=== PATIENT | female | born 1970 | race Caucasian/White ===

== ENCOUNTER 2017-07-08 17:38 | Emergency (ER) | payer OTHER ==
[2017-07-08 17:39] VITALS: BMI 47.4
[2017-07-08 18:01] VITALS: TEMP 98
--- NOTE | 2017-07-08 19:04 | C.PDOC ---
History Of Present Illness 47 year old female presents to the ED c/o Bilateral hand pain, left knee, and right hip pain. Patient reports that today she slipped at work on a waxed floor and fell forward. Patient denies LOC, headache, CP, SOB, weakness, numbness. - HPI Time Seen by Provider: 07/08/17 18:36 Chief Complaint (Nursing): Trauma History Per: Patient History/Exam Limitations: no limitations Onset/Duration Of Symptoms: Hrs Injury Occurred (Timing): Just Before Arrival Location Of Injury: Right: Hand, Hip, Left: Hand, Knee Recent travel outside of the [place]: No Additional History Per: Patient - Fall Fall:Prior To Injury: Slipped Past Medical History Reviewed: Historical Data, Nursing Documentation, Vital Signs Vital Signs: Last Vital Signs Temp 98 F 07/08/17 18:01 Pulse 84 07/08/17 18:01 Resp 18 07/08/17 18:01 BP 132/73 07/08/17 18:01 Pulse Ox 97 07/08/17 20:22 - Medical History PMH: Arthritis (KNEES), Gastritis, Hypercholesterolemia Denies: Chronic Kidney Disease Surgical History: Cholecystectomy, Endoscopy - [facility] Procedures COLONOSCOPY (12/06/13) ESOPHAGOGASTRODUODENOSCOPY [EGD] W/CLOSED BIOPSY (12/13/13) FASCIOTOMY (02/16/14) LOC EXC LES METATAR/TAR (02/16/14) Family History: States: Unknown Family Hx - Social History Hx Tobacco Use: No Hx Alcohol Use: No Hx Substance Use: No - Immunization History Hx Tetanus Toxoid Vaccination: No Hx Influenza Vaccination: Yes Hx Pneumococcal Vaccination: No Review Of Systems Constitutional: Negative for: Fever, Chills Eyes: Negative for: Vision Change Cardiovascular: Negative for: Chest Pain Respiratory: Negative for: Shortness of Breath Gastrointestinal: Negative for: Abdominal Pain Musculoskeletal: Positive for: Hand Pain, Leg Pain Skin: Negative for: Rash Neurological: Negative for: Weakness, Numbness Physical Exam - Physical Exam Appears: Non-toxic, No Acute Distress Skin: Normal Color, Warm, Dry Head: Atraumatic, Normacephalic Eye(s): bilateral: Normal Inspection, PERRL, EOMI Nose: No Discharge Oral Mucosa: Moist Neck: Normal ROM, No Midline Cervical Tenderness, Supple Chest: Symmetrical Cardiovascular: Rhythm Regular, No Murmur Respiratory: Normal Breath Sounds, No Rales, No Rhonchi, No Wheezing Gastrointestinal/Abdominal: Soft, No Tenderness, No Guarding, No Rebound Back: No Paraspinal Tenderness Extremity: Normal ROM, Tenderness (B/L hands, left knee and right hip), Capillary Refill (<2 seconds), No Deformity, No Swelling Pulses: Left Radial: Normal, Right Radial: Normal, Left Dorsalis Pedis: Normal, Right Dorsalis Pedis: Normal Neurological/Psych: Oriented x3, Normal Motor, Normal Sensation, Normal Reflexes Gait: Steady ED Course And Treatment O2 Sat by Pulse Oximetry: 97 (ON RA) Pulse Ox Interpretation: Normal - Other Rad hand xray X-Ray: Interpreted by Me Interpretation: no fractures/dislocations right hip X-Ray: Interpreted by Me Interpretation: No fractures/dislocations Left knee X-Ray: Interpreted by Me Interpretation: No fractures/dislocations Progress Note: Patient was treated with Percocet in ED. Knee immobilizer and crutches by CP. Patient was referred to Ortho for follow up. Medical Decision Making Medical Decision Making: Plan: * Hand X-Ray * Left knee X-Ray * Right hip X-Ray * Percocet 1 tab PO Disposition - Disposition Referrals: Todd King III, MD [Staff Provider] - Disposition: HOME/ ROUTINE Disposition Time: 21:26 Condition: STABLE Additional Instructions: Follow up with PMD and Orthopedist within 1-2 days. Return to ED if feel worse. Prescriptions: Ibuprofen [Motrin Tab] 600 mg PO Q8 #30 tab Instructions: Knee Immobilizer (DC), Contusion (DC) Forms: [employer] (Brazilian), Work Excuse - Clinical Impression Clinical Impression: Contusion, knee, Hip sprain, Hand contusion - PA / LOFTER / Resident Statement MD/DO has reviewed & agrees with the documentation as recorded. - Scribe Statement The provider has reviewed the documentation as recorded by the Scribe Adam Connors All medical record entries made by the Scribe were at my direction and personally dictated by me. I have reviewed the chart and agree that the record accurately reflects my personal performance of the history, physical exam, medical decision making, and the department course for this patient. I have also personally directed, reviewed, and agree with the discharge instructions and disposition.
[2017-07-08] MEDS ORDERED: Oxycodone/Acetaminophen 5/325 mg Tab PO STA (19:19)
[2017-07-08] MEDS ORDERED: Oxycodone/Acetaminophen 5/325 mg Tab ONE (19:24)
[2017-07-08 22:42] VITALS: BP 128/70; PULSE 74; RESP 20; O2SAT 98
--- NOTE | 2017-07-09 06:57 | RAD ---
PROCEDURE: Bilateral hand radiographs. HISTORY: fall COMPARISON: None. FINDINGS: BONES: There is no acute fracture or destructive bony lesion appreciated bilaterally. JOINTS: No dislocation or subluxation appreciate bilaterally. SOFT TISSUES: Right Hand: Normal. Left Hand: Normal. OTHER FINDINGS: None. IMPRESSION: No acute fracture or dislocation identified bilaterally.
--- NOTE | 2017-07-09 07:00 | RAD ---
PROCEDURE: Right Hip with Pelvis Radiographs. HISTORY: fall, [facility] neg COMPARISON: None. FINDINGS: BONES: There is no fracture of the right hip joint or the pelvic ring throughout. No destructive bony lesion identified. JOINTS: No subluxation is dislocation of the right hip joint though trace degenerative sclerosis appreciate the bilateral hip joints and sacroiliac joints appear intact and are unremarkable. Pubic symphysis appears intact. SOFT TISSUES: Small calcifications suggestive of phleboliths seen the inferior pelvis soft tissues infrequently, bilaterally. OTHER FINDINGS: None. IMPRESSION: No acute fracture or dislocation right hip joint with the pelvic ring appearing intact. Limited degenerative changes bilateral hip joints.
--- NOTE | 2017-07-09 07:01 | RAD ---
PROCEDURE: Left Knee Radiographs. HISTORY: Pain. COMPARISON: None. FINDINGS: BONES: No acute fracture or destructive bony lesion identified. JOINTS: No subluxation or dislocation. Medial femorotibial compartment joint space narrowing compatible degenerative joint disease. JOINT EFFUSION: None. OTHER FINDINGS: None. IMPRESSION: No acute fracture or dislocation left knee. Limited degenerative changes medial femorotibial compartment.
== END 2017-07-08 22:40 | disposition home or self-care (01) ==
LOC: C.ER 17:38
DX: S60.222A Contusion of left hand, initial encounter (principal); S60.221A Contusion of right hand, initial encounter; S80.02XA Contusion of left knee, initial encounter; S73.101A Unspecified sprain of right hip, initial encounter; W01.0XXA Fall on same level from slipping, tripping and stumbling without subsequent striking against object, initial encounter; Y92.89 Other specified places as the place of occurrence of the external cause; Y99.0 Civilian activity done for income or pay